=== PATIENT | female | born 1955 | race Caucasian/White ===

== ENCOUNTER 2017-02-24 16:27 | Emergency (ER) | payer OTHER ==
[~2017-02-24] VITALS: Ht 160 cm; Wt 85.0 kg
[~2017-02-24 16:27] MED LIST: BIOT10TA PO; MECL25CH PO; TAB-TAB PO; VITA-13 PO; VITA50TA10 PO
[2017-02-24 16:28] VITALS: BP 172/84; PULSE 80; RESP 16; TEMP 99.1; O2SAT 97
--- NOTE | 2017-02-24 16:43 | PD ---
Physical Exam Time Seen by Provider: 16:39 Narrative 61 year old female presents to ED for evaluation following a trip and fall this morning. She was outside with her dog when she tripped over it. Pt did strike her head but did not lose consciousness. She denies headache; no focal deficits or weakness. Sustained multiple abrasions. Is here for evaluation L ankle pain that has been persistent and worsening throughout the day. Has been able to ambulate, but states this exacerbates pain. Pt rates pain of L ankle 5/10 and took aleve prior to arrival. Data Data Last Documented VS Vital Signs Date Time Temp Pulse Resp B/P Pulse Ox O2 Delivery O2 Flow Rate FiO2 02/24/17 16:28 99.1 80 16 172/84 97 Room Air [facility] Medical Record Reviewed: Yes Supervised Visit with FINESSE: No Narrative Course 61 year old female presents to ED for evaluation of L ankle pain following a trip and fall that occurred this morning. Appears without distress; VSS. Condition: Stable Rhea Payne Feb 24, 2017 16:43
[2017-02-24] MEDS ORDERED: IBUP800T23 PO (17:10)
--- NOTE | 2017-02-24 17:11 | PD ---
HPI Chief Complaint: Injury Time Seen by Provider: 17:03 Travel History International Travel<30 days: No Contact w/Intl Traveler<30days: No Traveled to known affect area: No History of Present Illness HPI 61-year-old female presents to the emergency Department with complaint of left ankle pain after tripping over her dog this morning and falling. She did hit her left forehead and denies loss of consciousness. Denies neck pain or back pain. Denies paresthesias, loss of sensation to the affected extremity. Reports pain and swelling to the lateral aspect of the ankle. Has been ambulatory on the affected extremity. Denies headache, confusion, disorientation, change in mentation, slurred speech. Denies focal deficits or weakness. Denies anticoagulants. Denies nausea, vomiting. Denies chest pain, shortness of breath, abdominal pain. Denies other extremity pain. Reports abrasions to left elbow, knee, ankle. Denies elbow or knee pain. Up-to-date on tetanus vaccination. Took Aleve prior to arrival to the ER with good relief of ankle pain. Allergies to codeine. No other modifying factors or associated signs and symptoms. PFSH Past Medical History Autoimmune Disease: No Blood Disorders: No Anxiety: No Depression: No Heart Rhythm Problems: No Cancer: No Cardiac Catheterization: No Cardiovascular Problems: Yes (HTN) High Cholesterol: No Congestive Heart Failure: No Diabetes: No ("BOARDERLINE") Diminished Hearing: No Endocrine: No GERD: No Genitourinary: Yes (incontinence) Hypertension: No (DENIES) Immune Disorder: No Musculoskeletal: Yes Neurologic: No Reproductive: No Respiratory: Yes Myocardial Infarction: No Sleep Apnea: Yes (C PAP) Past Surgical History Abdominal Surgery: Yes (anmol breast reduction gallbladder removed with tubal) Section: Yes Cholecystectomy: Yes Coronary Artery Bypass Graft: No Gynecologic Surgery: Yes Neurologic Surgery: Yes (BACK) Pacemaker: No Social History Alcohol Use: No Tobacco Use: No Substance Use: No Allergies-Medications (Allergen,Severity, Reaction): Coded Allergies: Codeine (Unverified Adverse Reaction, Intermediate, DIZZY MOTION SICKNESS, 05/15/14) Reported Meds & Prescriptions Reported Meds & Active Scripts Active Ibuprofen 800 Mg Tab 800 Mg PO Q8HR PRN Meclizine Hcl (Meclizine HCl) 25 Mg Chw 25 Mg PO Q6H PRN Reported Biotin 10 Mg Tab 10 Mg PO DAILY Vitamin D3 (Cholecalciferol) 1,000 Unit Tab 1,000 Unit PO DAILY Vitamin B-12 (Cyanocobalamin) 50 Mcg Tab 50 Mcg PO DAILY Multivitamin (Multivitamins) 1 Tab Tab 1 Tab PO DAILY Review of Systems Except as stated in HPI: all other systems reviewed are Neg Physical Exam Narrative GENERAL: Well-nourished, well-developed female patient, in no acute distress SKIN: Warm and dry. Abrasions noted to left elbow, left knee, left ankle; all areas are without erythema, edema, drainage. HEAD: Atraumatic. Normocephalic. Mild edema with white ecchymosis noted to the left forehead. No facial or scalp abrasions or lacerations noted. No facial droop noted. Tongue midline. EYES: Pupils equal and round at 3 mm with brisk reaction. EOMI. PERRLA. No scleral icterus. No injection or drainage. No raccoon eyes. No orbital tenderness on palpation bilaterally. ENT: Mucosa pink and moist. No erythema or exudates. No uvular edema. No uvular , palatal, or tonsillar deviation. Airway patent. Nares without nasal blood, purulent drainage or septal hematoma. No rhinorrhea. EARS: Bilateral pinnae and external canals appear within normal limits. Bilateral tympanic membranes without erythema, dullness, hemotympanum or perforation. No otorrhea. No mishra signs. NECK: Moving freely.. Trachea midline. No lymphadenopathy. Active rotation of the neck greater than 45 left and right. No midline point tenderness on palpation of the cervical spine. No obvious deformities. CHEST: No retractions or use of accessory muscles. CARDIOVASCULAR: Regular rate and rhythm. No murmur appreciated. RESPIRATORY: No accessory muscle use. Clear to auscultation. Breath sounds equal bilaterally. GASTROINTESTINAL: Abdomen soft, non-tender, nondistended. Hepatic and splenic margins not palpable. Bowel sounds are active 4 quadrants. MUSCULOSKELETAL: Left ankle with point tenderness and swelling to the lateral malleolar zone; without erythema, ecchymosis; no obvious deformity; decreased range of motion. Left lower extremity is supple and non-tense with 2+ pedal pulses and sensory intact. No obvious deformities. No clubbing. No cyanosis. No edema. BACK: No midline Point tenderness on palpation of the lumbar or thoracic spine. No obvious deformities. Patient sitting up in bed at 90. NEUROLOGICAL: Awake and alert. Oriented 3. No obvious cranial nerve deficits. Motor grossly within normal limits. Normal speech. No midline drift. Moves all extremities. 5/5 strength to all extremities. Sensory intact. PSYCHIATRIC: Appropriate mood and affect; insight and judgment normal. Data Data Last Documented VS Vital Signs Date Time Temp Pulse Resp B/P Pulse Ox O2 Delivery O2 Flow Rate FiO2 02/24/17 16:28 99.1 80 16 172/84 97 Room Air Orders Ankle, Complete ([id number]) (02/24/17 17:03) [facility] Medical Decision Making Medical Screen Exam Complete: Yes Emergency Medical Condition: Yes Medical Record Reviewed: Yes Differential Diagnosis Fall, ankle sprain, ankle fracture, abrasions, forehead contusion Narrative Course 61-year-old female with left ankle injury, multiple abrasions, forehead contusion after a mechanical fall this morning. She did hit her head and denies loss of consciousness. Denies nausea, vomiting. On physical exam the patient is without raccoon eyes, mishra signs, rhinorrhea, or hemotympanum. I do not suspect open or depressed skull fracture, and the patient has no signs of basilar skull fracture. [place] CT Head Injury Rule suggests a head CT is not necessary for this patient and clears the patient for head injury without imaging. Denies neck pain. [place] C-Spine Rule suggests the C-Spine can be cleared clinically of fracture, and imaging is not required. There is no midline point tenderness on palpation of the cervical spine. The patient is able to actively rotate the neck 45 left and right. The patient is sitting up in bed at 90. The patient is ambulatory. Patient is not on anticoagulants. She is up-to-date on tetanus vaccination. Left ankle x-ray ordered. 174: Left ankle x-ray concludes Diffuse soft tissue swelling. Probable nondisplaced fracture of the tip of the medial malleolus. Robert splint and crutches ordered. Patient instructed to follow-up with orthopedic. Ibuprofen prescribed for home. Patient verbalizes understanding and agreement with treatment plan. Patient is medically cleared and stable for discharge. Discussed reasons to return to the emergency department. Instructed patient to follow up with primary care provider. Patient agrees with treatment plan. The patients vital signs are stable and the patient is stable for outpatient follow- up and treatment. Patient discharged home, stable and in no acute distress. Diagnosis Primary Impression: Closed left ankle fracture Qualified Code: S82.892A - Closed left ankle fracture, initial encounter Referrals: Orthopedist Primary Care Physician Patient Instructions: Ankle Fracture (ED), Crutch Instructions (ED), General Instructions Departure Forms: Tests/Procedures, Work Release Enter return to work date: Mar 03, 2017 Additional Instructions: Tylenol/ibuprofen every 6 hours as directed and as needed for pain Rest, ice, compress, and elevate extremity to decrease pain and inflammation Ankle Brace for support Crutches for support Avoid aggravating activity; increase activity as tolerated Follow-up with primary care provider Return to the emergency department immediately with worsening symptoms Med/Other Pt SpecificInfo: Prescription(s) given Scripts Ibuprofen 800 Mg [id number] Mg PO Q8HR PRN (PAIN) #20 TAB Ref 0 Prov:Cecy Bloom 02/24/17 Disposition: 01 DISCHARGE HOME Condition: Stable Cecy Bloom Feb 24, 2017 17:11
--- NOTE | 2017-02-24 17:43 | RADRPT ---
EXAM DATE/TIME: 02/24/2017 17:20 [place] COMPARISON: No previous studies available for comparison. INDICATIONS : Tripped over dogs, laceration to anterior left ankle. MEDICAL HISTORY : None. SURGICAL HISTORY : None. ENCOUNTER: Initial ACUITY: 1 day PAIN SCORE: 5/10 LOCATION: Left ankle FINDINGS: Three-view examination of the ankle demonstrates diffuse soft tissue swelling about both the medial a nd lateral aspect of the ankle. There is a thin lucency through the tip of the medial malleolus susp icious for a nondisplaced fracture. Distal fibula is intact. The ankle mortise is intact. Small pl kelechi calcaneal spur. No radiopaque foreign bodies. CONCLUSION: Diffuse soft tissue swelling. Probable nondisplaced fracture of the tip of the medial malleolus. Ruben Dave MD on February 24, 2017 at 17:40 Board Certified Radiologist. This report was verified electronically.
== END 2017-02-24 18:44 | disposition home or self-care (01) ==
LOC: NEPK 16:27
DX: S82.892A Other fracture of left lower leg, initial encounter for closed fracture (principal); W18.09XA Striking against other object with subsequent fall, initial encounter
CPT/HCPCS: 29515; 73610; 99283; E0113